=== PATIENT | female | born 1990 | race Hispanic/Latino ===

== ENCOUNTER 2018-04-22 02:15 | Inpatient (IN) | payer OTHER ==
[2018-04-22] MEDS ORDERED: OXYTOCIN 10 UNIT/ML ML IV ONE (02:56)
[2018-04-22] MEDS ORDERED: OXYTOCIN/LR 0 UNIT/0 ML BAG IV ONE (02:59)
[2018-04-22 03:48] LABS: RPR Titer ND
[2018-04-22 04:01] VITALS: BMI 33.5
[2018-04-22 04:08] LABS: Absolute Monocytes 0.5 K/uL (0.1-1.3); Absolute Neutrophil 15.5 K/uL (1.8-8.0); Basophils % 0.2 % (0-1.3); Eosinophils % 0.2 % (0-4.4); Hematocrit 39.1 % (36.0-45.0); Lymphocytes % 5.8 % (15.3-44.8); MCH 31.2 pg (27.0-35.0); MPV 9.9 fL (7.6-11.3); Monocytes % 2.7 % (3.3-12.3); RBC Red Blood Cell Count 4.35 M/uL (3.86-4.86)
[2018-04-22] MEDS: IBUPROFEN 400 MG TAB PO SCH ×4 (04:10→23:15)
[2018-04-22 04:50] LABS: Blood Morphology Comment NOT SEEN (NOT SEEN); Platelet Estimate ADEQ; Urine White Blood Cell Casts OK
--- NOTE | 2018-04-22 11:42 | HP ---
Date of Admission: 04/22/2018 History Of Present Illness: Mariana is a 27-year-old, 2, para 1-0-0-1, who presented to labor and delivery at 37 weeks and 3 days gestation. She presented in active labor. By the time I was notified by the nurse, the patient had already delivered the baby in the examination room bed. Upon my arrival, both baby and placenta were already delivered. The patient stated she was having contractions irregularly throughout the night, nothing was too severe. Once it became more painful, she presented to labor and delivery, at which time she was evaluated by the nurse, and was found to be 4 cm dilated. Rapidly her water broke and she began to give . This all occurred within 20-30 minutes. She has obtained care with Dr. Zhao. Her records are present, have been reviewed. She was diagnosed with gestational diabetes in and was taking glyburide twice a day. So she was taking 1.25 mg twice a day. She was last seen in the office on April 16, at which time her cervix was closed. Medical History: Included gestational diabetes. Surgical History: Negative. Gynecologic History: Includes an abnormal Pap in December 2016 of. OB history includes 1 prior vaginal . GBS swab, which was obtained in the office was found to be negative. Physical Examination: Vital Signs: On admission, the patient's vital signs, blood pressure 153/86, pulse of 84, respirations 20, temperature 97.2. Pain scale was 8/10. Vital signs after delivery with blood pressure 123/47, pulse of 75 respirations 18, temperature 98.0. Pain scale of 2. General: The patient resting comfortably in bed. Very happy with her delivery. Head and Neck: Normocephalic, atraumatic. Neck is supple. Respiratory: Symmetric nonlabored breathing. Abdomen: Soft, nontender. Fundus is firm. Extremities: Bilateral lower extremities, no clubbing, cyanosis, or edema. Vaginal: Normal external female genitalia. Vagina is pink, moist, normal rugae. No lacerations noted. Some blood clots were present, which were extracted. Cervix is now . No bleeding noted. Nontender. Uterus is firm. Fundus is palpable beneath the umbilicus. Nontender. Assessment And Plan: Mariana Smith is a 27-year-old 2, para 1-0-0-1, who presented at 37 weeks and 3 days gestation with precipitous vaginal delivery. The patient is doing well since the delivery. We will follow up with her glucose levels since she has gestational diabetes. We will provide routine care. MONIQUE Voice ID: [id number]
[2018-04-22 23:29] LABS: RPR (Rapid Plasma Reagin) NON-REACT (NON-REACT)
[2018-04-23 04:43] LABS: Absolute Lymphocytes (CBC) 2.6 K/uL (0.7-4.9); Absolute Monocytes 0.5 K/uL (0.1-1.3); Absolute Neutrophil 8.6 K/uL (1.8-8.0); Basophils % 0.1 % (0-1.3); Eosinophils % 1.4 % (0-4.4); Hematocrit 33.9 % (36.0-45.0); Lymphocytes % 21.9 % (15.3-44.8); MCH 31.5 pg (27.0-35.0); MCV 90.6 fL (80-100); MPV 9.6 fL (7.6-11.3); Monocytes % 4.5 % (3.3-12.3); RBC Red Blood Cell Count 3.75 M/uL (3.86-4.86)
[2018-04-23] MEDS: IBUPROFEN 400 MG TAB PO SCH (07:30)
[2018-04-23 08:59] VITALS: BP 125/67; TEMP 98.2
--- NOTE | 2018-04-23 22:26 | P.DS ---
Admission Date: 04/22/18 Discharge Date: 04/23/18 Disposition: ROUTINE DISCHARGE Discharge Condition: GOOD Brief History of Present Illness: See H&P Hospital Course: Patient did well following delivery. Her pain is well managed. She has been taking her glyburide. Yesterday morning she did not take it and her 2 hr postprandial glucose was 132. This morning it is 68 fasting. Reviewed with patient that she may not need to take the medication any longer and she needs to continue watching her diet and checking her glucose. Patient is bonding well with the baby. Her pain is easily controlled with ibuprofen. Vital Signs/Physical Exam: Temp Pulse Resp BP Pulse Ox 98.2 F 84 16 125/67 04/23/18 08:58 04/23/18 08:58 04/23/18 08:58 04/23/18 08:58 General: Alert, In no apparent distress HEENT: Atraumatic Neck: Supple Respiratory: Normal air movement Cardiovascular: No edema, Normal pulses Capillary refill: <2 Seconds Musculoskeletal: No swelling Integumentary: No rashes Neurological: Normal gait, Normal speech Laboratory Data at Discharge: WBC 12.0 K/uL (4.3-10.9) H D 04/23/18 04:08 Hgb 11.8 g/dL (12.0-15.0) L 04/23/18 04:08 Hct 33.9 % (36.0-45.0) L 04/23/18 04:08 Plt Count 183 K/uL (152-406) 04/23/18 04:08 Glucose 68 mg/dL (74-106) L 04/23/18 04:08 Home Medications: NK [No Home Meds] 04/22/18 Diet: Regular Activity: No lifting more than 10 lbs Followup: Jocelyn Zhao MD [ACTIVE - CAN ADMIT] -
[2018-04-24 13:20] LABS: HBsAG Nonreactive (Nonreactive)
--- NOTE | 2018-06-15 11:55 | P.OP ---
Date of Service: 04/22/18 Findings and Operative Technique As per History and physical. Patient delivered a viable male infant in cephalic presentation on 04/22/18 at 02:45 am upone arrival in labor and delivery. Both and placenta were delivered prior to physician's arrival. Perineum was inspected and noted to be intact. No procedures were performed. EBL was minimal. Mother and baby are both doing well. Placenta was inspected and noted to be intact.
== END 2018-04-23 09:50 | disposition home or self-care (01) | DRG 775 ==
LOC: L&D 02:15 → 2ND-WC 03:13
PROVIDERS: ADMIT Student in an Organized Health Care Education/Training Program; ATTEND Specialist
PROC: 10E0XZZ Delivery of Products of Conception, External Approach (ICD-10-PCS; principal; 2018-04-22)
DX: O62.3 Precipitate labor (principal); O24.425 Gestational diabetes mellitus in childbirth, controlled by oral hypoglycemic drugs; Z3A.37 37 weeks gestation of pregnancy; Z37.0 Single live birth
CPT/HCPCS: 36415; 82947; 85025; 86592; 86850; 86900; 86901; 87340; 88307; 99218; J2590